=== PATIENT | female | born 1985 | race Caucasian/White ===

== ENCOUNTER → 2024-05-23 11:32 | Outpatient (CLI) | payer MEDICARE, MEDICAID, SELFPAY ==
[2024-05-25 20:07] LABS: AFP Value 57.8 ng/mL (.); Gest Age on Col Date 20.3 weeks (.); Insulin Dep Diabetes No (.); OSBR Risk 1IN 5411 (.); Results Report (.); Test Results *Screen Negative* (.)
== END ==
PROVIDERS: PCP Family Medicine; Referring Provider Obstetrics & Gynecology; Visit Provider Obstetrics & Gynecology
DX: Z34.80 Encounter for supervision of other normal pregnancy, unspecified trimester (principal); R35.0 Frequency of micturition
CPT/HCPCS: 36415; 82105; 87086

== ENCOUNTER → 2024-05-25 07:01 | Outpatient (CLI) | payer MEDICARE, MEDICAID, SELFPAY ==
--- NOTE | 2024-05-25 07:02 | DI.US.S_ITS ---
PROCEDURE: US OB >= 14 WEEKS FETUS INDICATIONS: anatomy scan OUTSIDE/PRIOR DATING DATA: Last menstrual period (LMP): 01/03/2024. LMP-based estimated date of delivery (BARBRA): 10/09/2024. First dating scan (date and location): 03/06/2024. Estimated date of delivery (BARBRA) from first dating scan: 10/02/2024. The calculations are made using the clinical BARBRA of 10/09/2024. TECHNIQUE: Real-time scanning was performed of the fetus, with image documentation and biometric measurements. COMPARISON: None. FINDINGS: General: A single living intrauterine gestation is present. Presentation: Vertex. Placenta: Placental position is anterior , without previa. Amniotic fluid index: 13 cm, normal range is 5-24 cm. Single deepest vertical pocket is 5.4 cm. heart rate: 143 beats per minute. Maternal cervical canal: 3.1 cm long. Normal lower limit is 2.5 cm. biometrics: Biparietal diameter: 5.4 cm 22 weeks 3 days Head circumference: 19.7 cm 21 weeks 6 days Abdominal circumference: 18.7 cm 23 weeks 3 days Femur length: 4.1 cm 23 weeks 1 day Clinically estimated gestational age: 20 weeks 3 Composite gestational age from present scan: 22 weeks 5 days Estimated weight and percentile: 564 g, percentile cannot be calculated. Anatomic survey: Neuro: Ventricles are non-dilated at less than 10 mm. Cisterna magna is normal at 3-11 mm. Cerebellum is normal in size and morphology. Nuchal skin fold: Normal at less than 6 mm between 14-21 weeks gestational age. Face: Nose and lips, facial profile are normal. Spine: No evidence for spina bifida. Heart: 4-chambered heart is present, with normal ventricular outflow tracts. Diaphragm: Diaphragm is intact. Stomach: Left-sided stomach is present. Kidneys: No hydronephrosis. Normal is less than 5 mm in 2nd trimester, less than 7 mm in 3rd trimester. Cord: 3-vessel cord has orthotopic insertion. Bladder: Normal in size. Extremities: All 4 extremities identified. IMPRESSION: Single live intrauterine with ultrasound gestational age of 22 weeks 5 days. Anatomy is within normal limits. We strive to produce accurate, complete, and clear reports of imaging services. To assist us in improving patient care, this report was composed using standard report templates and voice recognition software. Therefore, it may contain abnormal punctuation, insertions and/or omissions. Occasional wrong-word or sound-alike substitutions may occur. Though we review the report and make efforts to correct it, we do recommend that the report be read carefully in proper context to recognize any text inaccuracies. Dictated by: Jody Rubin M.D. on 05/25/2024 at 11:43 Approved by: Jody Rubin M.D. on 05/25/2024 at 11:44
== END ==
LOC: US 07:01
PROVIDERS: PCP Family Medicine; Referring Provider Obstetrics & Gynecology; Visit Provider Obstetrics & Gynecology
DX: Z34.82 Encounter for supervision of other normal pregnancy, second trimester (principal); Z3A.22 22 weeks gestation of pregnancy
CPT/HCPCS: 76811

== ENCOUNTER → 2024-07-24 14:25 | Outpatient (CLI) | payer MEDICARE, MEDICAID, SELFPAY ==
--- NOTE | 2024-07-24 14:32 | DIAB.GDA ---
Initial Assessment Name: Mayra Pena Date: 07/24/24 Time: 145-215p Dx: Abnormal glucose complicating Provider: Ruben BARBRA: 10/02/24 Weeks: 30 Mayra presents today for initial visit. Completed OGTT with borderline results of 139mg/dl. OB contacted JOHN/KATALINA for education and CGM trial today. States pt tried finger sticks but was unable to provide consistent results. Mayra reports concerns for DM due to h/o increased wt since last in 2004. Denies any personal h/o GDM or PDM. Does endorse some DM hx with father T2DM. Anthropometrics: Ht: Wt: 247# today Prepregnancy wt: 235# Self-Monitoring Blood Glucose: None Diabetes Medications: None Pertinent Labs: Screen: 139mg/dl Nutrition Rx: CCD Nutrition Diagnosis: Altered nutrition related lab value r/t predicted abnormal glucose screen aeb lab value of 139mg/dl Intervention: This participant was very receptive. Provided appropriate educational handouts. Discussed the following topics: CGM Education Reviewed CGM use and equipment Discussed when to check blood sugars using finger stick Reviewed high and low blood sugar signs/symptoms and treatment options Provided education for self-administration of CGM placement Educated patient on alarm settings Discussed how to remove and dispose of equipment Brief nutrition recommendations Goals: Wear CGM x 15 days Follow-up: [facility] follow-up in one week with OB. Will schedule f/u prn based BG and pt needs. Mendy López RDN, KATALINA Certified [facility] and [employer] Rec[employer]iter T: [phone] F: [phone] [email or web address] Thank you for this referral
== END ==
PROVIDERS: PCP Family Medicine; Referring Provider Obstetrics & Gynecology
DX: O99.810 Abnormal glucose complicating pregnancy (principal); Z3A.30 30 weeks gestation of pregnancy; Z71.3 Dietary counseling and surveillance
CPT/HCPCS: 97802

== ENCOUNTER → 2024-08-14 12:21 | Outpatient (CLI) | payer MEDICARE, MEDICAID, SELFPAY ==
[2024-08-14 13:45] LABS: Add Manual Diff / Slide Review NO; Basophils Absolute Auto 100 /uL (0-100); Basophils Percent Auto 0.7 % (0-2); Eosinophils Absolute Auto 100 /uL (0-450); Eosinophils Percent Auto 0.7 % (2-4); Hematocrit 32.9 % (36-46); Hemoglobin 11.4 g/dL (12.0-16.0); Lymphocytes Absolute Auto 2500 /uL (1100-4500); Lymphocytes Percent Auto 19.9 % (25-40); Mean Corpuscular HGB Conc 34.6 % (30-36); Mean Corpuscular Hemoglobin 31.7 PG (26-34); Mean Corpuscular Volume 91.7 fL (80-100); Monocytes Absolute Auto 1000 /uL (0-900); Monocytes Percent Auto 7.8 % (3-14); Neutrophils Absolute Auto 9100 /uL (1500-7000); Neutrophils Percent Auto 70.9 % (50-75); Platelet Count 343 X10^3/uL (150-400); Red Blood Cell Count 3.58 X10^6/uL (4.0-5.2); Red Cell Distribution Width 14.2 % (11.6-14.8); White Blood Cell Count 12.8 X10^3/uL (4.5-11.0)
== END ==
LOC: LAB 12:26
PROVIDERS: PCP Family Medicine; Referring Provider Student in an Organized Health Care Education/Training Program; Visit Provider Student in an Organized Health Care Education/Training Program
DX: O99.013 Anemia complicating pregnancy, third trimester (principal); Z3A.33 33 weeks gestation of pregnancy
CPT/HCPCS: 36415; 85025

== ENCOUNTER → 2024-08-24 08:37 | Outpatient (CLI) | payer MEDICARE, MEDICAID, SELFPAY ==
--- NOTE | 2024-08-24 08:38 | DI.US.S_ITS ---
PROCEDURE: US OB LIMITED INDICATIONS: re-evaluate growth OUTSIDE/PRIOR DATING DATA: Last menstrual period (LMP): 01/03/2024. LMP-based estimated date of delivery (BARBRA): 10/09/2024. First dating scan (date and location): 03/06/2024. Estimated date of delivery (BARBRA) from first dating scan: 10/02/2024. The calculations are made using the ultrasound BARBRA of 10/02/2024. TECHNIQUE: Real-time scanning was performed of the fetus, with image documentation and biometric measurements. Biophysical profile was also obtained. Endovaginal scanning: Not performed COMPARISON: [facility], , OB >= 14 WEEKS FETUS, 05/25/2024, 7:10. FINDINGS: General: A single living intrauterine gestation is present. Presentation: Vertex. Placenta: Placental position is anterior, without previa. Amniotic fluid index: 11.2 cm, normal range is 5-24 cm. Single deepest vertical pocket is 4 cm. heart rate: 144 beats per minute. Maternal cervical canal: 3.2 cm long. Normal lower limit is 2.5 cm. biometrics: Biparietal diameter: 3.8 cm, 35 weeks 4 days. 79th percentile. Head circumference: 31.1 cm, 34 weeks 6 days. 24th percentile Abdominal circumference: 34.4 cm, 38 weeks 2 days. Out of range. Femur length: 6.6 cm, 34 weeks 0 days. 31st percentile. Clinically estimated gestational age: 34 weeks 3 days Composite gestational age from present scan: 35 weeks 5 days Estimated weight and percentile: 2980 g, 95th percentile Umbilical artery: Patent. IMPRESSION: 1. Phillips living intrauterine at 35 weeks 5 days based on today's ultrasound. This is concordant with the prior dating. Fetus is in the 95th percentile for weight. The abdominal circumference is out of range. The BPD is in the 79th percentile. 2. Normal placenta and amniotic fluid. We strive to produce accurate, complete, and clear reports of imaging services. To assist us in improving patient care, this report was composed using standard report templates and voice recognition software. Therefore, it may contain abnormal punctuation, insertions and/or omissions. Occasional wrong-word or sound-alike substitutions may occur. Though we review the report and make efforts to correct it, we do recommend that the report be read carefully in proper context to recognize any text inaccuracies. Dictated by: Dav Childers M.D. on 08/24/2024 at 20:07 Approved by: Dav Childers M.D. on 08/24/2024 at 20:17
== END ==
PROVIDERS: PCP Family Medicine; Referring Provider Student in an Organized Health Care Education/Training Program; Visit Provider Student in an Organized Health Care Education/Training Program
DX: O99.213 Obesity complicating pregnancy, third trimester (principal); Z3A.35 35 weeks gestation of pregnancy
CPT/HCPCS: 76816

== ENCOUNTER → 2024-09-04 09:10 | Outpatient (CLI) | payer MEDICARE, MEDICAID, SELFPAY ==
[2024-09-05 11:42] LABS: Strep Grp B PCR NEG for Grp B Strep
== END ==
PROVIDERS: PCP Family Medicine; Visit Provider Obstetrics & Gynecology
DX: Z34.83 Encounter for supervision of other normal pregnancy, third trimester (principal); Z3A.36 36 weeks gestation of pregnancy
CPT/HCPCS: 87653

== ENCOUNTER 2024-09-06 13:49 | Outpatient (CLI) | payer MEDICARE, MEDICAID, SELFPAY | END 2024-09-06 14:40 | disposition home or self-care (01) | LOC: LABOR 14:13 → OB 09-10 08:46 | PROVIDERS: PCP Family Medicine; Referring Provider Obstetrics & Gynecology; Visit Provider Obstetrics & Gynecology | DX: O09.523 Supervision of elderly multigravida, third trimester (principal); Z3A.36 36 weeks gestation of pregnancy; O99.213 Obesity complicating pregnancy, third trimester; Z3A.37 37 weeks gestation of pregnancy | CPT/HCPCS: 59025; 76815; G0378; G0379 ==

== ENCOUNTER → 2024-09-06 14:42 | Outpatient (CLI) | payer MEDICARE, MEDICAID, SELFPAY ==
--- NOTE | 2024-09-06 | DI.US.S_ITS ---
PROCEDURE: US OB LIMITED INDICATIONS: obesity complicating OUTSIDE/PRIOR DATING DATA: Last menstrual period (LMP): 01/03/2024. LMP-based estimated date of delivery (BARBRA): 10/09/2024. First dating scan (date and location): 03/06/2024. Estimated date of delivery (BARBRA) from first dating scan: 10/02/2024. The calculations are made using the ultrasound BARBRA of 10/02/2024. TECHNIQUE: Real-time scanning was performed of the fetus, with image documentation and biometric measurements. Endovaginal scanning: Not performed COMPARISON: [facility], OB LIMITED, 08/24/2024, 8:56. FINDINGS: General: A single living intrauterine gestation is present. Presentation: Vertex. Placenta: Placental position is anterior , without previa. Amniotic fluid index: 6.9 cm, normal range is 5-24 cm. Single deepest vertical pocket is 3.0 cm. heart rate: 160 beats per minute. Maternal cervical canal: Not seen at late stage of biometrics: Biparietal diameter: 9.1 cm, 37 weeks 0 days Head circumference: 32.5 cm, 36 weeks 6 days Abdominal circumference: 34.4 cm, 38 weeks 2 days Femur length: 7.4 cm, 37 weeks 5 days Clinically estimated gestational age: 36 weeks 2 days Composite gestational age from present scan: 37 weeks 3 days Estimated weight and percentile: 3318 g, 89th percentile Other: Not applicable. IMPRESSION: 1. Living late 3rd trimester intrauterine with no sonographic evidence of complications. 2. Normal interval growth. 3. Ultrasound age is 8 days greater than clinical age. We strive to produce accurate, complete, and clear reports of imaging services. To assist us in improving patient care, this report was composed using standard report templates and voice recognition software. Therefore, it may contain abnormal punctuation, insertions and/or omissions. Occasional wrong-word or sound-alike substitutions may occur. Though we review the report and make efforts to correct it, we do recommend that the report be read carefully in proper context to recognize any text inaccuracies. Dictated by: Lance Vasquez M.D. on 09/07/2024 at 10:16 Approved by: Lance Vasquez M.D. on 09/07/2024 at 10:19
== END ==
PROVIDERS: PCP Family Medicine; Referring Provider Obstetrics & Gynecology; Visit Provider Obstetrics & Gynecology
DX: O99.213 Obesity complicating pregnancy, third trimester (principal); Z3A.37 37 weeks gestation of pregnancy
CPT/HCPCS: 76815

== ENCOUNTER 2024-09-11 12:29 | Outpatient (CLI) | payer MEDICARE, MEDICAID, SELFPAY ==
--- NOTE | 2024-09-11 16:47 | P.TNLD_ITS ---
Visit Information Visit Information Date of evaluation: 09/11/24 Primary OB Provider: Aurelia Miranda On-call OB Provider: Elise Redd Reason for Evaluation: Yes non-stress test Comments/Additional reasons for admission: AMA, suspected GDM Vital Signs Vital Signs: maternal VS reviewed in OBIX and wnl [facility] Medical History (Updated 09/04/24 @ 09:19 by Aurelia Miranda MD) macrosomia Chlamydia Abnormal Pap smear of cervix (~2006) Hemorrhoid GERD (gastroesophageal reflux disease) depression HSV-1 infection Environmental allergies Surgical History (Updated 05/28/24 @ 20:23 by Demetra Henriquze) Anesthesia History of endoscopy [place] teeth extracted History of carpal tunnel surgery of left wrist (~2012) Family History (Updated 05/28/24 @ 20:25 by Demetra Henriquez) Mother Polycythemia vera Father Diabetes mellitus Grandmother Breast cancer Colon cancer Grandmother Cancer Grandfather Kidney failure Grandfather No problems noted. Uncle Heart valve disorder DVT (deep venous thrombosis) Social History marital status: number of children: 1 (grown and out of the house) household members: spouse lives independently: Yes caregiver/support person: No housing: house pets and animals: Yes (2 cats, wearing gloves and mask while tending litter box) education level: college (some college) occupational status: unemployed and previously employed ([employer]) current occupational exposures/hazards: No special rossana needs: No travel history: recent ([place]) seatbelt use: always helmet use: Yes water heater temp set < 120 deg: Yes working smoke detector in home: Yes fire extinguisher in home: Yes carbon monox detector in home: Yes firearms in home: Yes firearms unloaded and locked: Yes do you feel safe at home: Yes Smoking Status: Former smoker (off and on, most recently quit ~2019) Tobacco: How many years used: 20 (off and on, never heavily) second hand exposure: No alcohol intake: former (rarely when not ) substance use type: does not use during the past year weight has: remained stable well-balanced diet: daily or most days daily servings fruits/ve-4 caffeine: Yes (decaf only (minimal)) Type(s) of exercise: walking Review of Systems Review of Systems ROS: Yes All systems reviewed with the patient and are negative except as otherwise documented Evaluation Evaluation Baseline heart rate: 145 Variability: Moderate (11-25) monitor accelerations: Present Monitor Decelerations: Absent Uterine Contraction Intensity: Mild Category of Tracing: Reactive Status: Category l Diagnosis, Plan/Disposition Plan/Disposition Plan: routine f/u as scheduled OB Disposition: home
== END 2024-09-11 13:10 | disposition home or self-care (01) ==
LOC: LABOR 12:57 → OB 09-13 11:38
PROVIDERS: PCP Family Medicine; Referring Provider Obstetrics & Gynecology; Visit Provider Obstetrics & Gynecology
DX: O09.523 Supervision of elderly multigravida, third trimester (principal); Z3A.37 37 weeks gestation of pregnancy
CPT/HCPCS: 59025; G0378; G0379

== ENCOUNTER 2024-09-13 09:08 | Outpatient (CLI) | payer MEDICARE, MEDICAID, SELFPAY ==
--- NOTE | 2024-09-13 10:08 | PM.OBTRLD ---
Visit Information Visit Information Date of evaluation: 09/13/24 Primary OB Provider: Aurelia Miranda On-call OB Provider: Tahmina Mata Reason for Evaluation: Yes non-stress test [facility] Medical History (Updated 09/04/24 @ 09:19 by Aurelia Miranda MD) macrosomia Chlamydia Abnormal Pap smear of cervix (~2006) Hemorrhoid GERD (gastroesophageal reflux disease) depression HSV-1 infection Environmental allergies Surgical History (Updated 05/28/24 @ 20:23 by Demetra Henriquez) Anesthesia History of endoscopy [place] teeth extracted History of carpal tunnel surgery of left wrist (~2012) Family History (Updated 05/28/24 @ 20:25 by Demetra Henriquez) Mother Polycythemia vera Father Diabetes mellitus Grandmother Breast cancer Colon cancer Grandmother Cancer Grandfather Kidney failure Grandfather No problems noted. Uncle Heart valve disorder DVT (deep venous thrombosis) Social History marital status: number of children: 1 (grown and out of the house) household members: spouse lives independently: Yes caregiver/support person: No housing: house pets and animals: Yes (2 cats, wearing gloves and mask while tending litter box) education level: college (some college) occupational status: unemployed and previously employed ([employer]) current occupational exposures/hazards: No special rossana needs: No travel history: recent ([place]) seatbelt use: always helmet use: Yes water heater temp set < 120 deg: Yes working smoke detector in home: Yes fire extinguisher in home: Yes carbon monox detector in home: Yes firearms in home: Yes firearms unloaded and locked: Yes do you feel safe at home: Yes Smoking Status: Former smoker (off and on, most recently quit ~2018) Tobacco: How many years used: 20 (off and on, never heavily) second hand exposure: No alcohol intake: former (rarely when not ) substance use type: does not use during the past year weight has: remained stable well-balanced diet: daily or most days daily servings fruits/ve-4 caffeine: Yes (decaf only (minimal)) Type(s) of exercise: walking Evaluation Evaluation Baseline heart rate: 140 Variability: Moderate (11-25) monitor accelerations: Absent Monitor Decelerations: Absent Contraction Frequency (minutes): 0 Category of Tracing: Non-reactive Diagnosis, Plan/Disposition Plan/Disposition Plan: at 37w2d presenting for NST for AMA and suspected GDM. NST non-reactive, BPP ordered f/up: BPP 05/10, reassuring Follow up with primary OB for next apt OB Disposition: home
--- NOTE | 2024-09-13 10:12 | DI.US.S_ITS ---
PROCEDURE: US OB BIOPHYSICAL PROFILE INDICATIONS: non-reactive NST OUTSIDE/PRIOR DATING DATA: Last menstrual period (LMP): 01/03/24 LMP-based estimated date of delivery (BARBRA): 10/09/2024. First dating scan (date and location): 03/06/2024. Estimated date of delivery (BARBRA) from first dating scan: 09/04/2024. TECHNIQUE: Real-time scanning was performed of the fetus, with image documentation. Biophysical profile was also obtained. Endovaginal scanning: No COMPARISON: [facility], OB LIMITED, 09/06/2024, 14:58. FINDINGS: General: A single living intrauterine gestation is present. Presentation: Vertex. Placenta: Placental position is anterior , without previa. Amniotic fluid index: 8.3 cm, normal range is 5-24 cm. Single deepest vertical pocket is 3.7 cm. heart rate: 135 beats per minute. Maternal cervical canal: Not well identified Biophysical profile: Tone: 2 points. Movement: 2 points. Respiration: 2 points. Largest pocket of fluid: 2 points. IMPRESSION: Single intrauterine gestation with estimated due date of 09/04/2024 and a 8/8 score on the biophysical profile. We strive to produce accurate, complete, and clear reports of imaging services. To assist us in improving patient care, this report was composed using standard report templates and voice recognition software. Therefore, it may contain abnormal punctuation, insertions and/or omissions. Occasional wrong-word or sound-alike substitutions may occur. Though we review the report and make efforts to correct it, we do recommend that the report be read carefully in proper context to recognize any text inaccuracies. Dictated by: Ruben Ta M.D. on 09/13/2024 at 11:11 Approved by: Ruben Ta M.D. on 09/13/2024 at 11:15
== END 2024-09-13 11:02 | disposition home or self-care (01) ==
LOC: LABOR 09:54 → OB 09-17 06:26
PROVIDERS: PCP Family Medicine; Referring Provider Obstetrics & Gynecology; Visit Provider Obstetrics & Gynecology
DX: O09.523 Supervision of elderly multigravida, third trimester (principal); Z3A.37 37 weeks gestation of pregnancy
CPT/HCPCS: 59025; 59050; 76819; G0378; G0379

== ENCOUNTER 2024-09-17 21:32 | Outpatient (CLI) | payer MEDICARE, SELFPAY | END 2024-09-17 22:25 | disposition home or self-care (01) | LOC: OB 09-18 08:10 | PROVIDERS: PCP Family Medicine; Referring Provider Student in an Organized Health Care Education/Training Program; Visit Provider Student in an Organized Health Care Education/Training Program | DX: O09.523 Supervision of elderly multigravida, third trimester (principal); O36.8130 Decreased fetal movements, third trimester, not applicable or unspecified; Z3A.37 37 weeks gestation of pregnancy | CPT/HCPCS: 59025; G0378; G0379 ==

== ENCOUNTER 2024-09-18 19:26 | Inpatient (IN) | payer MEDICARE, SELFPAY ==
[2024-09-18 21:37] LABS: Add Manual Diff / Slide Review NO; Basophils Absolute Auto 0 /uL (0-100); Basophils Percent Auto 0.2 % (0-2); Eosinophils Absolute Auto 100 /uL (0-450); Eosinophils Percent Auto 0.6 % (2-4); Hematocrit 34.5 % (36-46); Hemoglobin 11.8 g/dL (12.0-16.0); Lymphocytes Absolute Auto 2800 /uL (1100-4500); Lymphocytes Percent Auto 18.8 % (25-40); Mean Corpuscular HGB Conc 34.3 % (30-36); Mean Corpuscular Hemoglobin 31.2 PG (26-34); Mean Corpuscular Volume 90.8 fL (80-100); Monocytes Absolute Auto 1200 /uL (0-900); Monocytes Percent Auto 8.3 % (3-14); Neutrophils Absolute Auto 10800 /uL (1500-7000); Neutrophils Percent Auto 72.1 % (50-75); Platelet Count 323 X10^3/uL (150-400); Red Cell Distribution Width 14.4 % (11.6-14.8); White Blood Cell Count 14.9 X10^3/uL (4.5-11.0)
[2024-09-18] MEDS: DINOPROSTONE VAG (CERVIDIL) 10 MG VAG (22:30)
[2024-09-18 23:19] LABS: Alanine Aminotransferase 33 IU/L (<35); Albumin 3.4 g/dL (3.5-5.0); Albumin Globulin Ratio 1.2 (1.0-2.8); Alkaline Phosphatase 161 U/L (38-126); Aspartate Aminotransferase 30 IU/L (14-36); BUN Creatinine Ratio 19.6 (6-22); Bilirubin Total 0.3 mg/dL (0.2-1.3); Blood Urea Nitrogen 9 mg/dL (7-17); Calcium 9.1 mg/dL (8.4-10.2); Carbon Dioxide 20 mmol/L (22-32); Chloride 105 mmol/L (98-107); Estimated Glomerular Filt Rate > 60 mL/min (>60); Globulin 2.8 g/dL (1.7-4.1); Glucose 116 mg/dL (70-100); HEMOLYSIS < 15 (0-50); Potassium 3.7 mmol/L (3.4-5.1); Sodium 133 mmol/L (137-145); Total Protein 6.2 g/dL (6.3-8.2)
[2024-09-18 23:55] VITALS: BP 121/60
--- NOTE | 2024-09-19 08:43 | PM.OBHP.IH.1 ---
OB HPI Date/Time Date of admission: 09/18/24 Date Patient Seen: 09/19/24 Time Patient Seen: 08:00 History of Present Condition Chief complaint: Induction BARBRA Calculator Estimated Delivery Date Method Current WG Current Estimate 10/02/24 Ultrasound #1 38w 1d Other Estimates 10/09/24 LMP (Certain) 37w 1d Estimated Gestational Age (weeks): 38w1d : 2 Para: 1 Narrative: 39yo at 38w1d by 10wk OSH US admitted overnight for cervical ripening, induction of labor at term in setting of newly diagnosed oligohydramnios (HELENA 2.7cm in office). course notable for AMA with low-risk cfDNA (XX), maternal class 2 obesity, borderline 1h OGTT non-compliant with f/u testing/BG monitoring, prior US with documented macrosomia (resolved), threatened PTL s/p BMZ at [place] ~33wga. Patient had cervidil placed yesterday evening at 2230. This AM contractions remain irregular, pt debating if she would like early epidural as she is becoming increasingly uncomfortable. JENNIFERON per RN care: good care Dating criteria OB: based on 1st trimester US only Abnormal ultrasound findings: interval growth scan: 08/24 - 2989g, 95th% (4wk AC acceleration per biometry) 09/06 - 3318g, 89th% (AC acceleration resolved) Obstetrical complications: other (borderline 1h OGTT (139), did not have 3h/non-compliant with BG checks ) Medical complications OB: other (class 2 obesity, h/o depression) External History : 2 Para: 1 Estimated Date of Delivery: 10/02/24 Indications Indication for induction OB: oligohydramnios Preadmission Labs Last OB Lab Results: Blood Type O Positive 09/18/24 21:20 Antibody Screen Negative 09/18/24 21:20 Hct 34.5 % (36-46) L 09/18/24 21:20 Hgb 11.8 g/dL (12.0-16.0) L 09/18/24 21:20 Group B Strep (PCR) Neg for grp b strep 09/04/24 09:00 Glucose Tolerance Testin hr (139) -: Chlamydia screen: negative, Gonorrhea screen: negative and Urine: negative -: PAP smear: Normal Genetic Screens: Cell-free DNA: Normal and Alpha-fetoprotein: Normal External Labs -: Urine: negative Prior (ies) Past Pregnancies Del. Date GA/Weeks Labor Lgth Wt Sex Route Outcome Anesthesia Place Delv Breastfeed Preg Comp Name 06/15/05 40.0 9 6 lb 8 oz Female vaginal live - full term epidural IH Attempted none Marisah Evaluation Evaluation Baseline heart rate: 140 Variability: Average (6-10) monitor accelerations: Present Monitor Decelerations: Absent Contraction Frequency (minutes): 7 Uterine Contraction Intensity: Moderate Category of Tracing: Reactive Status: Category l Dilation (cm): 4 Effacement (%): 50 Dilation: 3-4 cm Effacement: 40-50% station: -2 Position of cervix: mid Consistency: soft Schultz score: 7 PFSH Medical History (Updated 09/04/24 @ 09:19 by Aurelia Miranda MD) macrosomia Chlamydia Abnormal Pap smear of cervix (~2006) Hemorrhoid GERD (gastroesophageal reflux disease) depression HSV-1 infection Environmental allergies Surgical History (Updated 05/28/24 @ 20:23 by Demetra Henriquez) Anesthesia History of endoscopy [place] teeth extracted History of carpal tunnel surgery of left wrist (~2012) Family History (Updated 05/28/24 @ 20:25 by Demetra Henriquez) Mother Polycythemia vera Father Diabetes mellitus Grandmother Breast cancer Colon cancer Grandmother Cancer Grandfather Kidney failure Grandfather No problems noted. Uncle Heart valve disorder DVT (deep venous thrombosis) Social History marital status: number of children: 1 (grown and out of the house) household members: spouse lives independently: Yes caregiver/support person: No housing: house pets and animals: Yes (2 cats, wearing gloves and mask while tending litter box) education level: college (some college) occupational status: unemployed and previously employed ([employer]) current occupational exposures/hazards: No special rossana needs: No travel history: recent ([place]) seatbelt use: always helmet use: Yes water heater temp set < 120 deg: Yes working smoke detector in home: Yes fire extinguisher in home: Yes carbon monox detector in home: Yes firearms in home: Yes firearms unloaded and locked: Yes do you feel safe at home: Yes Smoking Status: Former smoker Tobacco: How many years used: 20 (off and on, never heavily) second hand exposure: No alcohol intake: former (rarely when not ) substance use type: does not use during the past year weight has: remained stable well-balanced diet: daily or most days daily servings fruits/ve-4 caffeine: Yes (decaf only (minimal)) Type(s) of exercise: walking Meds Home Medications and Allergies Home Medications Medication Instructions Recorded Confirmed Type omeprazole 40 mg capsule,delayed 40 mg PO DAILY 04/18/24 09/18/24 History release vit no.95-ferrous 1 tab PO DAILY 04/18/24 09/18/24 History fumarate 28 mg-folic acid 800 mcg tablet ( Multivitamins) aspirin 81 mg chewable tablet 81 mg PO DAILY #90 tabs 05/02/24 09/18/24 Rx ferrous sulfate 137 mg (45 mg 137 mg PO DAILY #90 tabs 07/11/24 09/18/24 Rx iron) tablet,extended release (Slow Fe) sennosides 8.6 mg tablet (Senna 8.6 mg PO BEDTIME PRN constipation 07/11/24 09/18/24 Rx Lax) #60 tabs Allergies Allergy/AdvReac Type Severity Reaction Status Date / Time Sulfa (Sulfonamide Allergy Mild Verified 09/18/24 22:35 Antibiotics) [SULFA (SULFONAMIDE ANTIBIOTICS)] venom-honey bee Allergy Mild Unverified 09/18/24 08:40 [BEE VENOM (HONEY BEE)] Review of Systems Review of Systems ROS: Yes All systems reviewed with the patient and are negative except as otherwise documented OB Exam Vital signs Blood Pressure: 107/53 Pulse Rate: 82 Respiratory Rate: 18 Temperature: 97.3 F [facility] Head: normal to inspection Resp Effort & Inspection: normal respiratory effort and able to speak in complete sentences Cardio Rate: regular rate Extremities Lower extremity: Yes normal to inspection GI Palpation: Yes soft Other: gravid, roxy cephalic, 8# External Female Exam: Yes normal external appearance Presentation: vertex Estimated Weight (lbs): 8 Objective Labs 09/18/24 21:20 09/18/24 22:49 Labs: Laboratory Results - last 24 hr 09/18/24 09/18/24 21:20 22:49 WBC 14.9 H RBC 3.80 L Hgb 11.8 L Hct 34.5 L MCV 90.8 MCH 31.2 MCHC 34.3 RDW 14.4 Plt Count 323 Neut % (Auto) 72.1 Lymph % (Auto) 18.8 L [place] % (Auto) 8.3 Eos % (Auto) 0.6 L Baso % (Auto) 0.2 Neut # (Auto) 92776 H Lymph # (Auto) 2800 [place] # (Auto) 1200 H Eos # (Auto) 100 Baso # (Auto) 0 Sodium 133 L Potassium 3.7 Chloride 105 Carbon Dioxide 20 L BUN 9 Creatinine 0.46 L Estimated GFR > 60 BUN/Creatinine Ratio 19.6 Glucose 116 H Calcium 9.1 Total Bilirubin 0.3 AST 30 ALT 33 Alkaline Phosphatase 161 H Total Protein 6.2 L Albumin 3.4 L Globulin 2.8 Albumin/Globulin Ratio 1.2 Blood Type O Positive Antibody Screen Negative Assessment and Plan Assessment and Plan Assessment and Plan narrative: 39yo at 38w1d by 10wk OSH US, HD2 IOL for newly identified oligohydramnios at term now s/p cervical ripening IOL ongoing, appropriate response to cervical ripening, start pitocin augmentation CEFM/toco, continue Cat 1 tracing, GBS neg, maternal VSS/afebrile plan interval SVE 6h/sooner PRN SROM/urge to push pt counseled on available analgesia, notify RN when epidural is desired anticipate vaginal delivery Time-Based Coding :: [TOTAL MINUTES] spent with patient and on the chart (including review of chart, obtaining history, exam, reviewing outside data, placing orders, documenting exam and treatment plan, and counseling patient) on [DATE].
[2024-09-19 09:00] VITALS: BP 107/53; PULSE 82; RESP 18; TEMP 36.3
[2024-09-19] MEDS: LACTATED RINGERS 1,000 ML 100 ML IV (09:35)
[2024-09-19] MEDS: OXYTOCIN PREMIX 30 UNIT/500 ML PLAST..BAG IV (09:37)
--- NOTE | 2024-09-19 10:36 | P.PCN_ITS ---
[facility] <Jenna Esteves, DO - Last Filed: 09/19/24 10:41> Pre-procedure Procedure: Continuous Lumbar Epidural for L&D (with dural puncture) Attending OB provider: Aurelia Miranda PMH/ROS narrative: 39yo (19 years prior) in labor at 38 weeks requesting epidural. See pre- anesthesia evaluation for further details. ASA Class: III Labs: Hct 34.5 % (36-46) L 09/18/24 21:20 Plt Count 323 X10^3/uL (150-400) 09/18/24 21:20 Medications: Current Medications Generic Name Dose Route Start Last Admin Trade Name Freq PRN Reason Stop Dose Admin Calcium Carbonate 1,000 mg 09/18/24 19:32 Calcium Carbonate 500 Mg Tab PO Q2HR PRN Dyspepsia Carboprost Tromethamine 250 mcg 09/18/24 19:32 Carboprost 250 Mcg/Ml Ampul IM Q90M PRN Bleeding Diphenhydramine HCl 25 mg 09/19/24 10:32 Diphenhydramine 50 Mg/Ml Vial IV Q10M PRN Pruritis Ephedrine Sulfate 10 mg 09/19/24 10:32 Ephedrine 50 Mg/Ml Vial IV Q5M PRN Blood pressure decrease more than 20% of baseline. Oxytocin/Lactated Ringer's 30 unit in 500 mls @ 200 mls/hr 09/18/24 19:32 Oxytocin Premix IV CONT PRN Bleeding Protocol Tranexamic Acid 1,000 mg/ 100 mls @ 600 mls/hr 09/18/24 19:32 Sodium Chloride IV NOW PRN Bleeding Oxytocin/Lactated Ringer's 30 unit in 500 mls @ 2 mls/hr 09/19/24 09:05 09/19/24 09:37 Oxytocin Premix IV 2 milliunit/min TITRATE SHELL 2 mls/hr Administration Protocol 2 MILLIUNIT/MIN FENT 2MCG/ML BUPIV 0.125% EPI 200 mcg in 100 mls @ 6 mls/hr 09/19/24 10:45 Fentanyl/Bupiv/Ns 2mcg/Ml - 0.125% EPIDURAL CONT SHELL Lidocaine HCl 20 ml 09/18/24 19:32 Lidocaine 1% 20 Ml INJ INTRA-OP PRN Post Delivery Methylergonovine Maleate 0.2 mg 09/18/24 19:32 Methylergonovine 0.2 Mg/Ml Vial IM NOW PRN Bleeding Methylergonovine Maleate 0.2 mg 09/18/24 19:32 Methylergonovine 0.2 Mg Tablet PO Q6HR PRN Heavy Bleeding Mineral Oil 30 ml 09/18/24 19:32 Mineral Oil 30 Ml Udc TOP PRN PRN Version Misoprostol 400 mcg 09/18/24 19:32 Misoprostol 200 Mcg Tablet SL NOW PRN Bleeding Misoprostol 800 mcg 09/18/24 19:32 Misoprostol 200 Mcg Tablet NH NOW PRN Bleeding Nalbuphine HCl 2.5 mg 09/19/24 10:32 Nalbuphine 20 Mg/Ml Ampul IV Q10M PRN Pruritis Naloxone HCl 0.2 mg 09/18/24 19:32 Naloxone 0.4 Mg/Ml Vial IV Q2MIN PRN Opiate Reversal Ondansetron HCl 4 mg 09/18/24 19:32 Ondansetron 4 Mg/2 Ml Inj IV Q4HR PRN Nausea And Vomiting Oxytocin 10 unit 09/18/24 19:32 Oxytocin 10 Unit/Ml Vial IM NOW PRN Bleeding Allergies: Allergies Allergy/AdvReac Type Severity Reaction Status Date / Time Sulfa (Sulfonamide Allergy Mild Verified 09/18/24 22:35 Antibiotics) [SULFA (SULFONAMIDE ANTIBIOTICS)] venom-honey bee Allergy Mild Unverified 09/18/24 08:40 [BEE VENOM (HONEY BEE)] Procedure Insertion date: 09/19/24 Insertion time: 10:05 Prep/Local: 1% lidocaine (Chloraprep) Interspace: L3-4 Patient position: sitting Needle: 18 gauge Tonyatead (27g Pencan needle for dural puncture) Loss of resistance with: saline HANNY at (cm): 8 Catheter placed at SKIN (cm): 15 Catheter in SPACE (cm): 7 Insertion: No CSF, No Blood, Yes Paresthesia with insertion, No Paresthesia with injection and No Test dose reaction Initial Medications TEST DOSE time: 10:06 TEST DOSE: 1.5% lidocaine with epinephrine 1:200k (mL): 3 BOLUS DOSE time: 10:07 BOLUS DOSE (mL): 4 BOLUS DOSE med: other (2 ml same as test dose + 2 ml 2% lido PF) Infusion INFUSION: 0.125% bupivacaine and with fentanyl 2 mcg/mL Initial rate (mL/hr): 8 Subsequent interventions: Epidural pump started at 10:21. Post-procedure Anesthesia date START: 09/19/24 Anesthesia time START: 09:54 <Carlie Reese CRNA - Last Filed: 09/20/24 00:29> Infusion Subsequent interventions: Epidural pump started at 10:21. Epidural rate increased to 10ml/hr at 1800. Bolus of 10ml 0.25% bupivacaine given at that time. Epidural site clean/dry/intact. Post-procedure Anesthesia date END: 09/20/24 Anesthesia time END: 00:26 Post-procedure Anesthesia Assessment: Yes CV function: HR/BP stable, Yes Resp function: RR/sat/airway adequate, Yes Post-op hydration adequate, Yes Pain control adequate, Yes Nausea & vomiting absent, Yes Temperature > 36 C and Yes Mental status appropriate
[2024-09-19] MEDS: PANTOPRAZOLE DR 40 MG TABLET PO (15:33)
--- NOTE | 2024-09-19 16:26 | PM.OBPNLAB ---
Date/Time Date Patient Seen: 09/19/24 Time Patient Seen: 16:26 Pain Control Pain control: tolerating well and epidural Pelvic Exam Dilation (cm): 5 Effacement (%): 70 station: -1 Amniotic membrane status: Intact Comments: AROM, clear fluid Contractions Contractions on admission: regular Monitor mode: External Pitocin rate (mU/min): 18 Contraction frequency (min): 3 Contraction pattern: Regular Contraction intensity: Moderate Status status: Category l Heart Rate Baseline: 145 Monitor Accelerations: Present Monitor Decelerations: Absent Monitor Variability: Moderate Assessment and Plan Assessment: induction ongoing Plan: continuous present management Comments: plan for interval SVE in 4h, if no further dilation consider IUPC to titrate pitocin >20 encourage position changes, peanut ball for descent anticipate vaginal delivery
[2024-09-19] MEDS: FENT 2MCG/ML BUPIV 0.125% EPI 200 MCG/100 ML PLAST..BAG 6 MCG EPIDURAL ×2 (17:24→17:25)
--- NOTE | 2024-09-19 21:41 | PM.OBPNLAB ---
Date/Time Date Patient Seen: 09/19/24 Time Patient Seen: 20:45 Pain Control Pain control: tolerating well and epidural Comments: notified per RN of interval SVE, C/C/0-+1 Pelvic Exam Dilation (cm): 10 Effacement (%): 100 station: 0 Amniotic membrane status: Ruptured Comments: caput noted Contractions Contractions on admission: regular Monitor mode: External Pitocin rate (mU/min): 16 Contraction frequency (min): 2 Contraction pattern: Regular Contraction intensity: Moderate Status status: Category ll Heart Rate Baseline: 145 Monitor Accelerations: Present Monitor Decelerations: Early Monitor Variability: Moderate Assessment and Plan Assessment: active labor Plan: Comments: Notified per RN of interval SVE, C/C/+1 at 2029 In room to assess patient C/C/0 with noted caput, maternal VSS/afebrile, Cat 1 tracing maternal expulsive efforts initiated at 2054, minimal descent despite 45min of excellent effort, concern for cephalopelvic disproportion, suture palpated LOT change in tracing with successive expulsive efforts, noted new variable deceleration to hillary 90bpm with recovery but decreasing intervening variability interval SVE after 45min of expulsive efforts with no descent, waning maternal energy and increasing intolerance to labor; patient counseled on recommendation and in agreement to proceed to primary section at this time informed consent reviewed, pitocin turned off. OR team activate and en route. 118kg --> 2g ancef + 500mg azithromycin, uterotonics in room at time of delivery
[2024-09-19] MEDS: AZITHROMYCIN 500 MG in DEXTROSE 5% IN WATER 250 ML 250 MG IV (22:15)
[2024-09-19] MEDS: CEFAZOLIN 2 GM/100 ML PREMIX 100 ML IV (22:40)
--- NOTE | 2024-09-19 23:01 | SUR.OPER ---
Supine on Padded OR bed, head on pillow, safety belt at thigh, arms secured on padded arm boards at <90 degrees abduction. Bump under right buttock. Legs uncrossed with pillow under knees, gel pad to heels, tape over blanket to lower legs.
[2024-09-19 23:28] VITALS: PULSE 82; RESP 20; O2SAT 97
--- NOTE | 2024-09-19 23:36 | SUR.OPER ---
Viable baby girl born at 2307 on 09/19/[birth year]24.
[2024-09-20] VITALS: BP 150/99; PULSE 87; RESP 18; TEMP 36.6; O2SAT 98
[2024-09-20 00:04] VITALS: BP 142/94; PULSE 86; RESP 26; O2SAT 100
[2024-09-20 00:09] VITALS: BP 145/95; PULSE 83; RESP 26; O2SAT 99
--- NOTE | 2024-09-20 00:09 | P.OP_ITS ---
Operative Date/Time/Diagnoses Date of procedure: 09/20/24 Time of procedure: 23:51 Pre-op diagnosis: 1) IUP at 38w1d; 2) second stage arrest; 3) intolerance to labor Post-op diagnosis: same Procedure & Clinicians Procedure: primary low transverse section Same procedure as scheduled: Yes Indications: second stage arrest, intolerance to labor Surgeon: Aurelia Miranda Mica Inspector: Tahmina Mata Click Yes if Unassisted: No Anesthesia Type: Epidural Operative Notes Findings: LGA female in LOT position, normal appearing uterus, cervix, bilateral fallopian tubes and adnexae Closure Type: primary Specimen(s): none sent Estimated Blood Loss (mL): 800 Procedure in detail: Pt was taken to the operating room and transferred to OR table.? The epidural was dosed to a surgical level per anesthesia.? The patient was placed in the supine position, prepped and draped in a sterile fashion.? Prior to incision the level of anesthesia was rechecked and found to be adequate.? A timeout was performed. A pfannensteil incision was made 2cm superior to the pubic symphysis.? This incision was carried down sharply to the level of the rectus fascia.? The fascia was incised sharply with knife and the incision was extended bilaterally and superiorly using mcgarry scissors. The superior border of the fascia was elevated with two Aminah clamps and bluntly dissected off of the rectus muscles followed by incision of the median raphe with the knife.? Attention was then turned to the inferior border of the fascia which was dissected away from the underlying musculature in a similar manner down to the level of the pubic symphysis.? The rectus muscles were then in the midline and the peritoneum was identified.? The peritoneum was entered bluntly under direct visualization.? The peritoneal opening was then extended manually.? The chain saw operator?s hand was inserted in the abdomen and the uterus was found to be in a non-rotated position. The bladder blade was then inserted. The vesicouterine peritoneum was identified, elevated using [place] forceps and incised in the midline using Metzenbaum scissors.? The incision was carried laterally and superiorly bilaterally.? A bladder flap was further developed digitally and the bladder blade was replaced.? Next, a low transverse incision was made in the uterus using the knife.? The incision was extended laterally and superiorly bilaterally bluntly.? The chain saw operator?s hand was then inserted into the uterus to find an infant in the vertex LOT position.? The bladder blade was removed and infant?s vertex was grasped, flexed and brought to the incision where the was delivered atraumatically using fundal pressure.? The was vigorous at delivery with active cry and excellent tone. The cord was doubly clamped and cut.? The infant was then passed to waiting pe diatricians.? The placenta was delivered via manual extraction as necessary; the placenta was then passed off the field. ? The uterus was exteriorized and the uterine cavity was wiped of all clots and debris.? The bladder blade was reinserted and the hysterotomy incision was repaired with #0 vicryl in a running locked fashion, followed by a second #0 vicryl in an imbricating fashion.? Tubes, ovaries and adnexae were visualized and noted to be grossly normal in appearance.? The uterus was replaced into the abdomen without difficulty and the hysterotomy was noted to be hemostatic off of tension.? The rectus fascia was closed using #1 vicryl in a running fashion.? The incision was irrigated and hemostasis was achieved using the bovie.? The subcutaneous space was reapproximated using plain gut suture in a running fashion.? The skin was closed using 4-0 monocryl followed by application of steristrips and abdominal compression dressing.? All counts were correct x2.? The pt tolerated the procedure well and without difficulty. Fundal contents were expressed and fundus noted to be firm, level noted prior to patient transfer to PACU in stable condition.? Complications: none Post-operative Condition: stable Disposition: PACU
[2024-09-20] MEDS: HYDROMORPHONE 1 MG INJ IV ×2 (00:10→00:15)
[2024-09-20 00:14] VITALS: BP 143/98; PULSE 79; RESP 20; O2SAT 98
[2024-09-20] MEDS: ACETAMINOPHEN IV 1,000 MG/100 ML VIAL 400 MG IV (00:18)
[2024-09-20] MEDS: KETOROLAC 30 MG/ML VIAL IV ×4 (00:19→19:05)
[2024-09-20 00:29] VITALS: BP 136/87; PULSE 75; RESP 18; TEMP 36.8; O2SAT 98
[2024-09-20] MEDS: OXYCODONE IR 5 MG TABLET PO ×3 (04:10→20:55)
[2024-09-20] MEDS: ACETAMINOPHEN 325 MG TABLET 650 MG PO ×3 (06:43→20:54)
[2024-09-20 06:47] LABS: Hemoglobin 11.2 g/dL (12.0-16.0)
[2024-09-20] MEDS: PRENATAL VIT,CALC/IRON/FOLIC 1 TABLET 1 TAB PO (08:51)
--- NOTE | 2024-09-20 17:21 | P.PNOB_ITS ---
Subjective - OB Subjective Patient comments: no complaints, pain well controlled, incisional pain and tolerating diet; no flatus present [place] baby status: doing well [place] feeding status: exclusively breast feeding Narrative: Patient had primary CS for secondary arrest late last evening but is doing well. Sobeida zimmerman. Date Patient Seen: 09/20/24 Time Patient Seen: 10:45 Exam Vital Signs (past 8 hours): Oxygen Delivery Method Room Air Const General: cooperative and comfortable Nutritional Appearance: average body habitus Orientation: alert and oriented x3 HENMT Head: normal to inspection, atraumatic and abrasion Ears: hearing grossly normal bilaterally Face and sinus: face symmetric Eyes General: appearance normal, both eyes and all related structures Conjunctivae: conjunctivae normal Sclera: sclerae normal EOM: EOM intact bilaterally Neck Neck: normal visual inspection Resp Effort & Inspection: normal respiratory effort and able to speak in complete sentences Auscultation: clear to auscultation bilaterally Cardio Rate: regular rate Rhythm: regular rhythm Heart Sounds: S1 normal, S2 normal and no murmurs GI Inspection: normal to inspection and incision (Surgical dressing clean and dry) Palpation: soft, no hepatosplenomegaly and tender (Mild, diffuse postsurgical tenderness) Auscultation: hypoactive bowel sounds External Female Exam: other (No significant bleeding noted) Extrem General: no calf tenderness Psych Appearance: grossly normal Mental Status: mental status grossly normal Speech and Movement: speech and movement normal Mood: congruent mood Affect: normal affect Attitude: cooperative Thought Process: normal Thought Content: normal Judgment: judgment good Objective Labs 09/20/24 06:38 09/18/24 22:49 Labs: Laboratory Results - last 24 hr 09/20/24 06:38 Hgb 11.2 L Hct 33.0 L Assessment & Plan Plan day: 1 plan OB: routine postop care Time-Based Coding :: 15 minutes spent with patient and on the chart (including review of chart, obtaining history, exam, reviewing outside data, placing orders, documenting exam and treatment plan, and counseling patient) on 09/20/2024.
[2024-09-20] MEDS: PANTOPRAZOLE DR 40 MG TABLET PO (20:54)
[2024-09-20] MEDS: LANOLIN OINT 7 GM 1 APPLIC TOP (20:55)
[2024-09-20] MEDS: SENNOSIDES 8.6 MG TABLET PO (22:45)
[2024-09-21] MEDS: OXYCODONE IR 5 MG TABLET PO ×2 (01:07→08:44)
[2024-09-21] MEDS: IBUPROFEN 600 MG TABLET PO ×2 (01:07→08:43)
[2024-09-21] MEDS: ACETAMINOPHEN 325 MG TABLET 650 MG PO (04:03)
[2024-09-21] MEDS: SENNOSIDES 8.6 MG TABLET PO (08:44)
[2024-09-21] MEDS: PRENATAL VIT,CALC/IRON/FOLIC 1 TABLET 1 TAB PO (08:44)
--- NOTE | 2024-09-21 10:41 | P.DS_ITS ---
History of Present Illness History of Present Illness Date Patient Seen: 09/21/24 Time Patient Seen: 10:41 Chief complaint: Induction Narrative: 39yo at 38w1d by 10wk OSH US admitted overnight for cervical ripening, induction of labor at term in setting of newly diagnosed oligohydramnios (HELENA 2.7cm in office). course notable for AMA with low-risk cfDNA (XX), maternal class 2 obesity, borderline 1h OGTT non-compliant with f/u testing/BG monitoring, prior US with documented macrosomia (resolved), threatened PTL s/p BMZ at [place] ~33wga. Patient had cervidil placed yesterday evening at 2230. This AM contractions remain irregular, pt debating if she would like early epidural as she is becoming increasingly uncomfortable. 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 Provider Date of admission: 09/18/24 19:26 Discharge Date: 09/21/24 Primary care physician: Devi Cruz MD Consults: 09/18/24 19:32 Consult to Anesthesiology Urgent Comment: Consulting Provider: Anesthesiologist Reason for consultation: Epidural 09/20/24 00:40 Consult to Targeting Acquisition Officer Routine Comment: Discharge provider: Pedro Michele MD Summary Hospital Course Discharge Diagnosis: Intrauterine gestation, 38+ 1 weeks, delivered by primary section Oligohydramnios Secondary arrest of descent in the 2nd stage intolerance of labor Hospital Course: Mayra was admitted on the evening of 09/18/2024 for cervical ripening due to oligohydramnios. She was initially managed with insertion of Cervidil followed by Pitocin augmentation of her labor. Patient progressed into the 2nd stage but did not descend beyond +1 station and due to category 2/3 tracing the decision was made to proceed to primary section which was performed on the evening of 09/20/2024. Following delivery both the patient and her baby have done extremely well with the mother experiencing prompt return of bowel and bladder function, she is ambulating independently, tolerating a regular diet, and her pain is well relieved with oral pain medications. She will be discharged at this time in an afebrile normotensive condition to home after counseling regarding precautionary symptoms, limitations activity, medications, and plans for follow-up which will be in 1 week. Medications at discharge will include resumption of all preadmission medications and oxycodone 5 mg every 4-6 hours as needed for pain, dispense 20 with no refills. Status at Discharge Cognitive/behavioral status at discharge: oriented Functional status at discharge: independent ambulation Overall status at discharge: patient is progressing back to baseline Time Spent with Patient Time spent: Less than 30 minutes Exam Vital Signs (past 8 hours): Oxygen Delivery Method Room Air Const General: cooperative and comfortable Nutritional Appearance: average body habitus Orientation: alert and oriented x3 HENMT Head: normal to inspection, atraumatic and abrasion Ears: hearing grossly normal bilaterally Face and sinus: face symmetric Eyes General: appearance normal, both eyes and all related structures Conjunctivae: conjunctivae normal Sclera: sclerae normal EOM: EOM intact bilaterally Neck Neck: normal visual inspection Resp Effort & Inspection: normal respiratory effort and able to speak in complete sentences Auscultation: clear to auscultation bilaterally Cardio Rate: regular rate Rhythm: regular rhythm Heart Sounds: S1 normal, S2 normal and no murmurs GI Inspection: normal to inspection and incision (Surgical dressing clean and dry) Palpation: soft, no hepatosplenomegaly and tender (Mild, diffuse postsurgical tenderness) External Female Exam: other (No significant bleeding noted) Extrem General: no calf tenderness Psych Appearance: grossly normal Mental Status: mental status grossly normal Speech and Movement: speech and movement normal Mood: congruent mood Affect: normal affect Attitude: cooperative Thought Process: normal Thought Content: normal Judgment: judgment good Objective Labs 09/20/24 06:38 09/18/24 22:49 [facility] Medical History (Updated 09/04/24 @ 09:19 by Aurelia Miranda MD) macrosomia Chlamydia Abnormal Pap smear of cervix (~2006) Hemorrhoid GERD (gastroesophageal reflux disease) depression HSV-1 infection Environmental allergies Surgical History (Updated 05/28/24 @ 20:23 by Demetra Henriquez) Anesthesia History of endoscopy [place] teeth extracted History of carpal tunnel surgery of left wrist (~2012) Family History (Updated 05/28/24 @ 20:25 by Demetra Henriquez) Mother Polycythemia vera Father Diabetes mellitus Grandmother Breast cancer Colon cancer Grandmother Cancer Grandfather Kidney failure Grandfather No problems noted. 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) current occupational exposures/hazards: No special rossana needs: No travel history: recent ([place]) seatbelt use: always helmet use: Yes water heater temp set < 120 deg: Yes working smoke detector in home: Yes fire extinguisher in home: Yes carbon monox detector in home: Yes firearms in home: Yes firearms unloaded and locked: Yes do you feel safe at home: Yes Smoking Status: Former smoker Tobacco: How many years used: 20 (off and on, never heavily) second hand exposure: No alcohol intake: former (rarely when not ) substance use type: does not use during the past year weight has: remained stable well-balanced diet: daily or most days daily servings fruits/ve-4 caffeine: Yes (decaf only (minimal)) Type(s) of exercise: walking Discharge Assessment & Plan Assessment and Plan Assessment: Intrauterine gestation, 38+ 1 weeks, delivered by primary section Oligohydramnios Secondary arrest of descent in the 2nd stage intolerance of labor Plan of Treatment: Routine postoperative care with follow-up planned for 1 week following discharge Discharge Plan Discharge Plan Patient Disposition: Home Provider Discharge Comment: Please review the written instructions you received when you were discharged from the hospital. Your follow-up appointment will be scheduled for 1 week after your discharge and we look forward to seeing you then. If however in the meantime you have any issues, concerns, or questions, please contact the office either by phone at [phone], or via the patient portal. Discharge orders & Medications Prescriptions: New oxycodone 5 mg Tablet 5 mg PO Q6H PRN (Reason: Pain, Moderate (4-6)) Qty: 20 0RF Continued Slow Fe 137 mg (45 mg iron) tablet extended release 137 mg PO DAILY Qty: 90 1RF PNV cmb#[id number]-ferrous fumarate-FA [ Multivitamins] 28 mg iron- 800 mcg tablet 1 tab PO DAILY omeprazole 40 mg capsule,delayed release(DR/EC) 40 mg PO DAILY sennosides [Senna Lax] 8.6 mg tablet 8.6 mg PO BEDTIME PRN (Reason: constipation) Qty: 60 2RF aspirin 81 mg tablet,chewable 81 mg PO DAILY Qty: 90 3RF Follow up/Referrals: Devi Cruz MD [Primary Care Provider] - Aurelia Miranda MD [Physician] - 6 Weeks (Followup with Dr. Miranda on November 09, 2024 @ 11:00am for your 6 week appointment.) Pedro Michele MD [Physician] - 1 Week (Followup with Dr. Michele on TuesdaySeptember 28 @ 2:15pm for your incision check.) Discharge Health Status Multidrug resistant organism: No MDRO Diet/Activity/Treatments Diet: Diet as Tolerated Activity: As tolerated Other treatments: [id number] Tylenol for additional pain relief. Rthc-lfa-[id number] stool softeners and/MiraLax should be used as needed constipation Skin/Wound/Dressing Care Skin care: Keep incision clean and dry Report to your healthcare provider any signs of infection, such as:: chills, fever, increased pain, unusual drainage and unusual redness Visit Report/Discharge Packet Instructions: DI for , DI for Prescription Opioid Use Discharge Data Primary Care Provider: Devi Cruz
== END 2024-09-21 11:30 | disposition home or self-care (01) | DRG 787 ==
PROVIDERS: Admitting Provider Obstetrics & Gynecology; PCP Family Medicine; Referring Provider Obstetrics & Gynecology; Visit Provider Obstetrics & Gynecology
PROC: (CPT 59514; principal; 2024-09-19 22:30)
DX: O62.1 Secondary uterine inertia (principal); O41.03X0 Oligohydramnios, third trimester, not applicable or unspecified; O99.214 Obesity complicating childbirth; O76 Abnormality in fetal heart rate and rhythm complicating labor and delivery; Z3A.38 38 weeks gestation of pregnancy; Z37.0 Single live birth; O36.8130 Decreased fetal movements, third trimester, not applicable or unspecified; Z3A.37 37 weeks gestation of pregnancy
CPT/HCPCS: 36415; 59025; 59050; 59200; 59510; 59514; 80053; 85014; 85018; 85025; 86850; 86900; 86901; G0379; J0134; J0690; J1171; J1885; J2274; J2405; J2590; J2704; J3010